=== PATIENT | female | born 1980 | race Caucasian/White ===

== ENCOUNTER → 2016-04-22 | Outpatient (CLI) | payer BC, OTHER ==
[~2016-04-22] MED LIST: APAP500 PO; CALCIUM 600 +1 EAC2; DERMOPLAST SPRA56 ML; GLYBURIDE 2.52.5 M1; HYDROCORTISONE30 G9 RE; IBUPROFEN 600600 M1 PO; IBUPROFEN200 M2 PO; LANOLIN56 GM; PRENATAL MULTI1 EACH; PRENATAL PO; TRIPLE NIPPLE; TUCKS MEDICATE1 EAC1; VITAMIN E400 UNIT
== END ==
LOC: RAD 09:45
DX: R53.83 Other fatigue (principal); R05 Cough